=== PATIENT | female | born 1965 | race African-American/Black ===

== ENCOUNTER 2017-08-07 12:24 | Emergency (ER) | payer OTHER ==
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
[2017-08-07 12:51] VITALS: BP 132/90; PULSE 72; TEMP 97.9; BMI 26.2
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
== END 2017-08-07 17:55 | disposition home or self-care (01) ==
LOC: JER 12:24
DX: S09.90XA Unspecified injury of head, initial encounter (principal); W18.39XA Other fall on same level, initial encounter; Y93.89 Activity, other specified; Y92.219 Unspecified school as the place of occurrence of the external cause; Y99.0 Civilian activity done for income or pay; I10 Essential (primary) hypertension; D64.9 Anemia, unspecified
CPT/HCPCS: 70450-TC; 72070-TC; 72100-TC; 72125-TC; 99284-25

== ENCOUNTER 2018-06-29 22:02 | Emergency (ER) | payer OTHER ==
[2018-06-29 22:16] VITALS: BP 146/94; PULSE 76; TEMP 98; BMI 24.4
[2018-06-29] MEDS ORDERED: AMOX TR/POT CLAV 875MG/125MG TABLETS (FP) PO ONE (22:39)
[2018-06-29] MEDS ORDERED: DIPHTH,PERTUSS(ACELL),TET 0.5 ML DISP.SYRIN IM ONE (22:39)
[2018-06-29] MEDS ORDERED: IBUPROFEN 600 MG TABLET (FP) PO ONE ×2 (22:39→22:51)
--- NOTE | 2018-06-29 22:41 | PDOC ---
History of Present Illness - General Chief Complaint: Injury Stated Complaint: INJURY - History of Present Illness Initial Comments: The patient is a 53F w/ a history of HTN who presents for evaluation of a bite wound to her L long finger. The patient reports a wound near her nail bed. The injury occurred just [employer]. The patient pulled her hand away but then fell backwards onto her back and left arm. The patient endorses aching R lower back pain as well as a L upper lateral arm pain after falling. The patient denies weakness. She was able to immediately ambulate after the fall. Denies LOC or PARK. The patient denies recent fevers/chills, chest pain, shortness of breath, abdominal pain, or changes in sensation. 06/29/18 22:35 Past History - Past Medical History Allergies/Adverse Reactions: Allergies Allergy/AdvReac Type Severity Reaction Status Date / Time No Known Drug Allergies Allergy Verified 06/29/18 22:35 Home Medications: Ambulatory Orders Amlodipine Besylate [Norvasc -] 10 mg PO DAILY 07/22/14 Losartan 50Mg/Hctz 12.5MG [Hyzaar -] 1 tab PO DAILY 08/07/17 Amox-Tr/K Cl [Augmentin - 875Mg Tablet] 1 tab PO BID 7 Days #14 tablet 06/29/18 Anemia: Yes COPD: No HTN: Yes - Suicide/Smoking/Psychosocial Hx Smoking History: Never smoked Have you smoked in the past 12 months: No Hx Alcohol Use: No Drug/Substance Use Hx: No Substance Use Type: None Hx Substance Use Treatment: No Review of Systems - Review of Systems Able to Perform ROS?: Yes Comments:: GENERAL/CONSTITUTIONAL: No fever or chills. No weakness HEAD, EYES, EARS, NOSE AND THROAT: No change in vision. No ear pain or discharge. No sore throat CARDIOVASCULAR: No chest pain or shortness of breath RESPIRATORY: No cough, wheezing, or hemoptysis GASTROINTESTINAL: No nausea, vomiting, diarrhea or constipation GENITOURINARY: No dysuria, frequency, or change in urination MUSCULOSKELETAL: per HPI NEUROLOGIC: No headache, vertigo, loss of consciousness, or change in strength/ sensation ENDOCRINE: No increased thirst. No abnormal weight change HEMATOLOGIC/LYMPHATIC: No anemia, easy bleeding, or history of blood clots ALLERGIC/IMMUNOLOGIC: No hives or skin allergy 06/30/18 06:39 Is the patient limited Yakut proficient: No *Physical Exam - Vital Signs Last Vital Signs Temp Pulse Resp BP Pulse Ox 98.0 F 76 18 146/94 100 06/29/18 22:14 06/29/18 22:14 06/29/18 22:14 06/29/18 22:14 06/29/18 22:14 - Physical Exam Comments: GENERAL: Awake, alert, and fully oriented, in no acute distress HEAD: No signs of trauma, normocephalic, atraumatic EYES: PERRL, EOMI, sclera anicteric, conjunctiva clear ENT: Hearing grossly normal, nares patent, oropharynx clear without exudates. Moist mucosa LUNGS: No distress, speaks full sentences, clear to auscultation bilaterally HEART:Regular rate and rhythm, normal S1 and S2, no murmurs appreciated, peripheral pulses normal and equal bilaterally BACK: R lateral lumbar TTP, no midline TTP, no step offs ABDOMEN: Soft, nontender, normoactive bowel sounds. No guarding, no rebound NEUROLOGICAL: Cranial nerves II through XII grossly intact. Normal speech, normal gait, no focal sensorimotor deficits SKIN: Warm, Dry, normal turgor, no rashes or lesions noted RUE: Inspection: No erythema or ecchymosis. No tenderness, no obvious abnormalities, no open wounds. Compartments soft and compressible, pain within proportion, no pain to passive stretch Sensation: sensation present to light touch m/r/u n Motor: intact AIN/PIN/Ulnar in hand; 5/5 Wrist flex/ext; 5/5 Elbow flex/ext; 5/ 5 Shoulder ABd,Flex Vascular: 2+ radial pulse palpated, BCR all fingers <2 sec. LUE: Inspection: Small avulsion bite injury to medial aspect of cuticle of long finer. Small ecchymosis over lateral mid arm. No bony deformity. Compartments soft and compressible, pain within proportion, no pain to passive stretch Sensation: sensation present to light touch m/r/u n Motor: intact AIN/PIN/Ulnar in hand; 5/5 Wrist flex/ext; 5/5 Elbow flex/ext; 5/ 5 Shoulder ABd,Flex Vascular: 2+ radial pulse palpated, BCR all fingers <2 sec. 06/29/18 22:41 Medical Decision Making - Medical Decision Making The patient is a 53F w/ a history of HTN who presents for evaluation of a bite from a patient. 06/29/18 23:06 HIV 1-2 Oraquick HAV, HBV, HCV Testing for workplace exposure Boostrix given as patient's last tetanus was >10 y ago 06/29/18 23:11 R hip XR to r/o fx s/p fall Wound cleaned and dressed, no foreign object identified Rx Augmentin 850mg PO BID for 7d Plan for D/C w/ PCP f/u Wound care instructions given Discharge instructions and return precautions given Dispo: Home 06/29/18 23:22 *DC/Admit/Observation/Transfer Diagnosis at time of Disposition: Injury of left hand Qualifiers: Encounter type: initial encounter Qualified Code(s): S69.92XA - Unspecified injury of left wrist, hand and finger(s), initial encounter - Discharge Dispostion Disposition: HOME Condition at time of disposition: Stable Decision to Admit order: No - Prescriptions Prescriptions: Amox-Tr/K Cl [Augmentin - 875Mg Tablet] 1 tab PO BID 7 Days #14 tablet - Referrals Referrals: [facility] [place] [facility] [place] [facility] [place] [Provider Group] - Patient Instructions Printed Discharge Instructions: Minor Wounds (Alternative Therapy) Additional Instructions: You were seen in the Emergency Room for evaluation of a left hand long finger wound. Please review the handout provided at discharge. Be sure to wash your hands with soap and running water. Pat dry. You may place Bacitracin on the wound while it is open. Return to the Emergency Room if you develop increasing pain, redness, puss drainage, fevers, or any new/concerning symptoms. - Post Discharge Activity
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
[2018-06-29] MEDS ORDERED: AMOX TR/POT CLAV 875MG/125MG TABLETS (FP) ONE (22:51)
[2018-06-29] MEDS ORDERED: BACITRACIN 0.9 GM PACKET ONE (22:59)
[2018-07-04 00:07] LABS: HBSAG SCREEN Negative (Negative); HEP A AB, IGM Negative (Negative); HEP B CORE AB, TOT Negative (Negative)
== END 2018-06-30 00:10 | disposition home or self-care (01) ==
LOC: JER 22:02
PROC: 3E0234Z Introduction of Serum, Toxoid and Vaccine into Muscle, Percutaneous Approach (ICD-10-PCS; principal; 2018-06-29)
DX: S61.253A Open bite of left middle finger without damage to nail, initial encounter (principal); S40.022A Contusion of left upper arm, initial encounter; W50.3XXA Accidental bite by another person, initial encounter; Y93.F9 Activity, other caregiving; Y92.118 Other place in children's home and orphanage as the place of occurrence of the external cause; Y99.0 Civilian activity done for income or pay; W19.XXXA Unspecified fall, initial encounter
CPT/HCPCS: 36415; 73523-TC-FY; 86704; 86706; 86708; 87340; 87389; 87522; 90715; 99282-25

== ENCOUNTER 2019-07-07 18:45 | Emergency (ER) | payer OTHER ==
[2019-07-07 18:56] VITALS: BP 150/88; PULSE 63; TEMP 98; BMI 24.6
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
== END 2019-07-07 19:42 | disposition home or self-care (01) ==
LOC: JERFT 18:45
PROC: 2W3JX1Z Immobilization of Right Finger using Splint (ICD-10-PCS; principal; 2019-07-07)
DX: M20.011 Mallet finger of right finger(s) (principal); Y04.2XXA Assault by strike against or bumped into by another person, initial encounter; Y93.89 Activity, other specified; Y92.128 Other place in nursing home as the place of occurrence of the external cause; Y99.0 Civilian activity done for income or pay; I10 Essential (primary) hypertension; D64.9 Anemia, unspecified
CPT/HCPCS: 73140-TC-RT-FY; 99281-25